=== PATIENT | female | born 1960 | race African-American/Black ===

== ENCOUNTER 2019-01-03 15:57 | Emergency (ER) | payer MEDICAID ==
[~2019-01-03] VITALS: Ht 165.1 cm; Wt 72.6 kg
[~2019-01-03 15:57] MED LIST: ATOR20TA PO; CIPR-263 PO; TAMS-11 PO
[2019-01-03 16:04] VITALS: BP 132/71
== END 2019-01-03 19:30 | disposition left against medical advice (07) ==
LOC: ER 15:57
DX: Z53.21 Procedure and treatment not carried out due to patient leaving prior to being seen by health care provider (principal)